=== PATIENT | male | born 1980 | race Two or more races ===

== ENCOUNTER 2018-12-15 05:12 | Emergency (ER) | payer OTHER ==
[~2018-12-15] VITALS: Ht 167.6 cm; Wt 77.1 kg
[2018-12-15 05:18] VITALS: BP 150/97
--- NOTE | 2018-12-15 06:34 | NUR ---
Pt ambulatory with a steady gait. Patient discharged to home in stable condition. Written and verbal after care instructions given. Patient verbalizes understanding of instruction.
== END 2018-12-15 06:36 | disposition home or self-care (01) ==
LOC: ER 05:19
DX: A49.02 Methicillin resistant Staphylococcus aureus infection, unspecified site (principal); F17.200 Nicotine dependence, unspecified, uncomplicated